=== PATIENT | male | born 1980 | race African-American/Black ===

== ENCOUNTER 2016-04-26 09:14 | Emergency (ER) | payer MEDICARE, OTHER ==
[~2016-04-26] VITALS: Ht 167.6 cm; Wt 68.1 kg
[~2016-04-26 09:14] MED LIST: AMLO-512 PO; CLON.1 PO; LOSA50TA37 PO
[2016-04-26 09:26] VITALS: BP 206/130
[2016-04-26] MEDS ORDERED: HydrALAZINE HCL 25 MG TABLET PO ONE (10:30)
== END 2016-04-26 11:09 | disposition left against medical advice (07) ==
LOC: EMS 09:16
DX: I12.0 Hypertensive chronic kidney disease with stage 5 chronic kidney disease or end stage renal disease (principal); N18.6 End stage renal disease; Z99.2 Dependence on renal dialysis
CPT/HCPCS: 93005; 99283

== ENCOUNTER 2016-04-26 12:01 | Inpatient (IN) | payer MEDICARE, OTHER ==
[~2016-04-26] VITALS: Ht 167.6 cm; Wt 66.7 kg
[2016-04-26 12:21] LABS: BASOPHILS # (AUTO) 0.04 K/uL (0.00-0.20); BASOPHILS % (AUTO) 0.6 % (0.0-2.0); EOSINOPHILS # (AUTO) 0.25 K/uL (0.00-0.70); EOSINOPHILS % (AUTO) 3.93 % (1.0-6.0); HEMATOCRIT 31.3 % (41-53); HEMOGLOBIN 10.4 g/dL (13.5-17.5); LYMPHOCYTES # (AUTO) 0.7 K/uL (1.0-4.8); LYMPHOCYTES % (AUTO) 10.2 % (22.0-44.0); MEAN CORPUSCULAR HEMOGLOBIN 28.2 pg (26.0-34.0); MEAN CORPUSCULAR HGB CONC 33.4 G/dL (31.0-37.0); MEAN CORPUSCULAR VOLUME 84 fL (80-100); MONOCYTES # (AUTO) 0.3 K/uL (0.1-1.0); MONOCYTES % (AUTO) 4.9 % (2.0-9.0); NEUTROPHILS # (AUTO) 5.2 K/uL (1.8-7.7); NEUTROPHILS % (AUTO) 80.4 % (40.0-70.0); PLATELET COUNT (AUTO) 214 K/uL (150-450); RED CELL DISTRIBUTION WIDTH 14.3 % (11.5-14.5); WHITE BLOOD COUNT (AUTO) 6.5 K/uL (4.5-11.0)
[2016-04-26] MEDS ORDERED: CALCIUM GLUCONATE 100 MG/ML 10 ML IVP ONE (12:30)
[2016-04-26] MEDS ORDERED: HydrALAZINE HCL 20 MG/ML VIAL IVP ONE (12:30)
[2016-04-26 12:41] LABS: PROTHROMBIN TIME 10.4 SEC (9.4-11.6)
[2016-04-26] MEDS ORDERED: CLONIDINE HCL TD SCH (14:00)
[2016-04-26 14:10] LABS: ALANINE AMINOTRANSFERASE 28 U/L (12-78); ANION GAP 14 mmol/L (8-16); ASPARTATE AMINOTRANSFERASE 25 U/L (15-37); BILIRUBIN,TOTAL 0.7 mg/dL (0.1-1.0); CALCIUM, TOTAL 8.2 mg/dL (8.8-10.5); CARBON DIOXIDE 27 mmol/L (22-29); CHLORIDE 91 mmol/L (98-107); CREATINE KINASE MB 3.8 ng/mL (0-5); CREATININE 12.43 mg/dL (0.60-1.30); GLOMERULAR FILTR. RATE CALC 6 mL/min (>60); PHOSPHORUS 6.1 mg/dL (2.5-4.9); SODIUM SERUM 132 mmol/L (136-145); TOTAL PROTEIN, SERUM 8.2 g/dL (6.4-8.2); UREA NITROGEN, BLOOD 47 mg/dL (7-18)
[2016-04-26] MEDS: LOSARTAN POTASSIUM 50 MG TABLET PO SCH (14:11)
[2016-04-26] MEDS: AmLODIPine BESYLATE 10 MG TABLET PO SCH ×3 (14:12→14:18)
[2016-04-26 14:13] LABS: CREATINE KINASE, TOTAL 1305 U/L (39-308); POTASSIUM 6.1 mmol/L (3.5-5.1)
[2016-04-26] MEDS ORDERED: BISACODYL 10 MG RECTAL RECTAL SUPPOSITORY PR PRN (14:45)
[2016-04-26] MEDS ORDERED: ACETAMINOPHEN 325 MG TABLET PO PRN (14:45)
[2016-04-26] MEDS ORDERED: OxyCODONE HCL/ACETAMINOPHEN 5-325 MG TABLET PO PRN (14:45)
[2016-04-26] MEDS ORDERED: ALBUTEROL SULFATE 2.5 MG/0.5 ML NEB SOLUTION NEB PRN (14:45)
[2016-04-26] MEDS ORDERED: LORazepam 2 MG/ML VIAL IVP PRN (14:45)
[2016-04-26] MEDS ORDERED: SODIUM POLYSTYRENE SULFONATE 15 GM/60 ML SUSPENSION BOTTLE PR ONE (14:45)
[2016-04-26] MEDS ORDERED: SODIUM POLYSTYRENE SULFONATE 15 GM/60 ML SUSPENSION BOTTLE PO ONE (15:00)
[2016-04-26] MEDS ORDERED: IPRATROPIUM BROMIDE 0.5 MG/2.5 ML NEB SOLUTION NEB ONE (15:45)
[2016-04-26] MEDS ORDERED: ALBUTEROL SULFATE 5 MG/ML 20 ML NEB SOLN [BULK] NEB ONE (15:45)
[2016-04-26] MEDS ORDERED: 0.9% SODIUM CHLORIDE 5 ML NEB SOLUTION NEB ONE (15:53)
[2016-04-26 16:50] LABS: GLUCOSE,POINT OF CARE 112 MG/DL (70-110)
[2016-04-26 17:48] VITALS: BP 163/94
[2016-04-26] MEDS: ALUMINUM HYDROXIDE PO SCH (18:55)
[2016-04-26] MEDS: SEVELAMER CARBONATE 800 MG TABLET PO SCH (18:55)
[2016-04-26 20:39] VITALS: BP 179/94
[2016-04-26] MEDS: HEPARIN SODIUM,PORCINE 5,000 UNITS/ML VIAL SQ SCH (22:01)
[2016-04-26] MEDS: TERAZOSIN HCL 2 MG CAPSULE PO SCH (22:02)
[2016-04-26] MEDS: DOCUSATE SODIUM 100 MG CAPSULE PO SCH (22:02)
[2016-04-27 00:11] VITALS: BP 174/99
[2016-04-27 05:35] VITALS: BP 100/74
[2016-04-27 06:57] LABS: CALCIUM, TOTAL 6.3 mg/dL (8.8-10.5); CREATININE 14.53 mg/dL (0.60-1.30); POTASSIUM 4.6 mmol/L (3.5-5.1)
[2016-04-27 07:35] VITALS: BP 182/118
[2016-04-27] MEDS: ALUMINUM HYDROXIDE PO SCH ×3 (08:00→18:00)
[2016-04-27] MEDS: DOCUSATE SODIUM 100 MG CAPSULE PO SCH ×2 (08:10→20:17)
[2016-04-27] MEDS: SEVELAMER CARBONATE 800 MG TABLET PO SCH ×3 (08:10→18:17)
[2016-04-27] MEDS: PANTOPRAZOLE SODIUM 40 MG DR TABLET PO SCH (08:10)
[2016-04-27] MEDS: VITAMIN B COMP/VIT C/FOLIC ACID CAPSULE PO SCH (08:11)
[2016-04-27] MEDS: HEPARIN SODIUM,PORCINE 5,000 UNITS/ML VIAL SQ SCH (08:14)
[2016-04-27] MEDS ORDERED: VITAMIN B COMP/VIT C/FOLIC ACID CAPSULE PO SCH (09:00)
[2016-04-27 11:25] VITALS: BP 180/108
[2016-04-27] MEDS ORDERED: SODIUM CHLORIDE 0.9% 2,000 ML IV ONE (11:36)
[2016-04-27] MEDS ORDERED: HEPARIN SODIUM,PORCINE 1,000 UNITS/ML VIAL IVP ONE ×3 (12:00→14:45)
[2016-04-27] MEDS: LOSARTAN POTASSIUM 50 MG TABLET PO SCH (13:10)
[2016-04-27] MEDS ORDERED: MANNITOL 25%-12.5 GM/50 ML VIAL IVP PRN (14:45)
[2016-04-27 19:36] VITALS: BP 197/110
[2016-04-27] MEDS: TERAZOSIN HCL 2 MG CAPSULE PO SCH (20:17)
[2016-04-27] MEDS: AmLODIPine BESYLATE 10 MG TABLET PO SCH (20:18)
[2016-04-27 23:43] VITALS: BP 131/75
[2016-04-28] MEDS: CloNIDine HCL 0.2 MG TABLET PO SCH ×2 (00:01→08:18)
[2016-04-28 04:05] VITALS: BP 136/77
[2016-04-28 07:58] VITALS: BP 132/70
[2016-04-28] MEDS: SEVELAMER CARBONATE 800 MG TABLET PO SCH (08:18)
[2016-04-28] MEDS: AmLODIPine BESYLATE 10 MG TABLET PO SCH (08:19)
[2016-04-28] MEDS: PANTOPRAZOLE SODIUM 40 MG DR TABLET PO SCH (08:19)
[2016-04-28] MEDS: DOCUSATE SODIUM 100 MG CAPSULE PO SCH (09:00)
[2016-04-28 09:06] LABS: CALCIUM, TOTAL 7.7 mg/dL (8.8-10.5); CREATININE 10.32 mg/dL (0.60-1.30); POTASSIUM 5.5 mmol/L (3.5-5.1)
[2016-04-28 09:10] LABS: PHOSPHORUS 6.1 mg/dL (2.5-4.9)
[2016-04-28] MEDS: VITAMIN B COMP/VIT C/FOLIC ACID CAPSULE PO SCH (09:16)
[2016-04-28 11:25] VITALS: BP 131/77
[2016-04-28] MEDS ORDERED: SEVE2.4P PO ×3 (13:18→13:20)
[2016-04-28] MEDS ORDERED: SEVEC800 PO (13:24)
[2016-05-03] MEDS ORDERED: CLONIDINE HCL TD SCH (14:00)
== END 2016-04-28 14:10 | disposition home or self-care (01) | DRG 682 ==
LOC: EMS 12:03 → AHU 15:54 → 5S 19:27
PROVIDERS: ADMIT Internal Medicine; ATTEND Internal Medicine
PROC: 5A1D00Z (ICD-10-PCS; principal; 2016-04-27)
DX: I12.0 Hypertensive chronic kidney disease with stage 5 chronic kidney disease or end stage renal disease (principal); N18.6 End stage renal disease; E87.5 Hyperkalemia; D63.1 Anemia in chronic kidney disease; E83.39 Other disorders of phosphorus metabolism; E83.51 Hypocalcemia; J45.909 Unspecified asthma, uncomplicated; R56.9 Unspecified convulsions; Z86.14 Personal history of Methicillin resistant Staphylococcus aureus infection; Z87.891 Personal history of nicotine dependence; Z91.14 Patient's other noncompliance with medication regimen; Z91.19 Patient's noncompliance with other medical treatment and regimen; Z99.2 Dependence on renal dialysis; Z79.899 Other long term (current) drug therapy
CPT/HCPCS: 70450; 70486; 72125; 82962; 83970; 84100; 87040; 87081; 90935; 93005; 94644; 95816; 96374; 96375; 99285; J0360; J0610; J1644; J7030

== ENCOUNTER 2016-08-28 20:57 | Inpatient (IN) | payer MEDICARE, OTHER ==
[~2016-08-28] VITALS: Ht 170.2 cm; Wt 62.4 kg
[~2016-08-28 20:57] MED LIST changes: +SEVEC800 PO
[2016-08-28] MEDS ORDERED: ACETAMINOPHEN 500 MG TABLET ONE (21:13)
[2016-08-28] MEDS ORDERED: TERA5 PO (21:14)
[2016-08-28] MEDS ORDERED: SPIR25 PO (21:14)
[2016-08-28] MEDS ORDERED: CALC-879 PO (21:14)
[2016-08-28] MEDS ORDERED: ACETAMINOPHEN 500 MG TABLET PO ONE (21:15)
[2016-08-28] MEDS ORDERED: SODIUM CHLORIDE 0.9% 500 ML IV ONE ×2 (21:30→22:30)
[2016-08-28] MEDS ORDERED: ONDANSETRON HCL 4 MG/2 ML VIAL IVP ONE (21:30)
[2016-08-28 22:11] LABS: EOSINOPHILS % (AUTO) 2.3 % (1.0-6.0); HEMATOCRIT 22.7 % (41-53); HEMOGLOBIN 7.4 g/dL (13.5-17.5); LYMPHOCYTES # (AUTO) 0.1 K/uL (1.0-4.8); LYMPHOCYTES % (AUTO) 1.1 % (22.0-44.0); MEAN CORPUSCULAR HEMOGLOBIN 28.7 pg (26.0-34.0); MEAN CORPUSCULAR HGB CONC 32.7 G/dL (31.0-37.0); MEAN CORPUSCULAR VOLUME 88 fL (80-100); MONOCYTES # (AUTO) 0.6 K/uL (0.1-1.0); MONOCYTES % (AUTO) 6.9 % (2.0-9.0); NEUTROPHILS # (AUTO) 8.2 K/uL (1.8-7.7); RED BLOOD CELL COUNT(AUTO) 2.59 MIL/uL (4.50-5.90); RED CELL DISTRIBUTION WIDTH 18.2 % (11.5-14.5); WHITE BLOOD COUNT (AUTO) 9.1 K/uL (4.5-11.0)
[2016-08-28 22:17] LABS: NEUTROPHILS % (AUTO) 89.7 % (40.0-70.0)
[2016-08-28 22:23] LABS: ALBUMIN 3.7 g/dL (3.4-5.0); BILIRUBIN,TOTAL 1.1 mg/dL (0.1-1.0); CALCIUM, TOTAL 8.9 mg/dL (8.8-10.5); CREATININE 14.17 mg/dL (0.60-1.30); TOTAL PROTEIN, SERUM 6.9 g/dL (6.4-8.2)
[2016-08-28 22:25] LABS: LACTIC ACID 1.3 mmol/L (0.4-2.0)
[2016-08-28 22:26] LABS: POTASSIUM 6.6 mmol/L (3.5-5.1)
[2016-08-28] MEDS ORDERED: CALCIUM GLUCONATE 100 MG/ML 10 ML IVP ONE (22:30)
[2016-08-28] MEDS ORDERED: DEXTROSE 50%-WATER 25 GM/50 ML SYRINGE IVP ONE (22:30)
[2016-08-28] MEDS ORDERED: INSULIN REGULAR, HUMAN 100 UNITS/ML IVP ONE (22:30)
[2016-08-28] MEDS ORDERED: SODIUM POLYSTYRENE SULFONATE 15 GM/60 ML SUSPENSION BOTTLE PO ONE (22:30)
[2016-08-28] MEDS ORDERED: FUROSEMIDE 40 MG/4 ML VIAL IVP ONE (22:30)
[2016-08-28] MEDS ORDERED: ALBUTEROL SULFATE 2.5 MG/0.5 ML NEB SOLUTION NEB ONE (22:30)
[2016-08-28] MEDS ORDERED: SODIUM BICARBONATE [ADULT] 8.4% 50 MEQ/50 ML SYRINGE IVP ONE (22:30)
[2016-08-28 22:32] LABS: PLATELET COUNT (AUTO) 78 K/uL (150-450); RBC MORPHOLOGY COMMENT ABNORMAL RBC MORPH
[2016-08-28 22:52] LABS: GLUCOSE,POINT OF CARE 93 MG/DL (70-110)
[2016-08-28] MEDS ORDERED: HYDROCODONE/ACETAMINOPHEN 5-325 MG TABLET PO PRN (23:15)
[2016-08-28] MEDS ORDERED: MAGNESIUM HYDROXIDE SUSPENSION 30 ML UDCUP PO PRN (23:15)
[2016-08-28] MEDS ORDERED: ONDANSETRON HCL 4 MG/2 ML VIAL IVP PRN (23:15)
[2016-08-28] MEDS ORDERED: MORPHINE SULFATE 2 MG/ML SYRINGE IVP PRN (23:15)
[2016-08-28] MEDS ORDERED: ALBUTEROL SULFATE 2.5 MG/0.5 ML NEB SOLUTION NEB PRN (23:15)
[2016-08-28] MEDS ORDERED: ZOLPIDEM TARTRATE 5 MG TABLET PO PRN (23:15)
[2016-08-28] MEDS ORDERED: VANCOMYCIN HCL 500 MG in DEXTROSE 5%-WATER 100 ML IV ONE (23:15)
[2016-08-28] MEDS ORDERED: IPRATROPIUM BROMIDE 0.5 MG/2.5 ML NEB SOLUTION NEB PRN (23:15)
[2016-08-28] MEDS ORDERED: BISACODYL 10 MG RECTAL RECTAL SUPPOSITORY PR PRN (23:15)
[2016-08-28] MEDS ORDERED: 0.9% SODIUM CHLORIDE 5 ML NEB SOLUTION NEB ONE (23:42)
[2016-08-29] VITALS (8 sets, daily range): BP systolic 131–169; BP diastolic 72–89
[2016-08-29] MEDS ORDERED: HydrALAZINE HCL 20 MG/ML VIAL IVP PRN ×2 (00:15→01:45)
[2016-08-29] MEDS ORDERED: HydrALAZINE HCL 20 MG/ML VIAL IVP ONE (01:45)
[2016-08-29] MEDS ORDERED: NIFEdipine 60 MG ER TABLET PO ONE (01:45)
[2016-08-29] MEDS ORDERED: HEPARIN SODIUM,PORCINE 1,000 UNITS/ML VIAL IVP ONE ×3 (02:00→12:00)
[2016-08-29] MEDS: HEPARIN SODIUM,PORCINE 5,000 UNITS/ML VIAL SQ SCH ×4 (02:02→22:55)
[2016-08-29] MEDS: ACETAMINOPHEN 325 MG TABLET PO PRN ×3 (02:08→11:21)
[2016-08-29] MEDS ORDERED: SODIUM CHLORIDE 0.9% 250 ML IV ONE (02:18)
[2016-08-29 06:39] LABS: EOSINOPHILS # (AUTO) 0.11 K/uL (0.00-0.70); EOSINOPHILS % (AUTO) 1.28 % (1.0-6.0); HEMOGLOBIN 7.4 g/dL (13.5-17.5); LYMPHOCYTES # (AUTO) 0.1 K/uL (1.0-4.8); LYMPHOCYTES % (AUTO) 0.8 % (22.0-44.0); MEAN CORPUSCULAR HEMOGLOBIN 29.2 pg (26.0-34.0); MEAN CORPUSCULAR HGB CONC 33.6 G/dL (31.0-37.0); MEAN CORPUSCULAR VOLUME 87 fL (80-100); MONOCYTES # (AUTO) 0.4 K/uL (0.1-1.0); MONOCYTES % (AUTO) 4.9 % (2.0-9.0); NEUTROPHILS # (AUTO) 7.9 K/uL (1.8-7.7); PLATELET COUNT (AUTO) 74 K/uL (150-450); RED BLOOD CELL COUNT(AUTO) 2.54 MIL/uL (4.50-5.90); RED CELL DISTRIBUTION WIDTH 18.2 % (11.5-14.5); WHITE BLOOD COUNT (AUTO) 8.5 K/uL (4.5-11.0)
[2016-08-29 07:12] LABS: ALBUMIN 3.3 g/dL (3.4-5.0); BILIRUBIN,TOTAL 1.5 mg/dL (0.1-1.0); CALCIUM, TOTAL 9.1 mg/dL (8.8-10.5); CREATININE 8.86 mg/dL (0.60-1.30); POTASSIUM 4.7 mmol/L (3.5-5.1); TOTAL PROTEIN, SERUM 6.4 g/dL (6.4-8.2)
[2016-08-29] MEDS: PANTOPRAZOLE SODIUM 40 MG/VIAL IVP SCH (08:35)
[2016-08-29] MEDS: DOCUSATE SODIUM 100 MG CAPSULE PO SCH ×2 (08:35→20:58)
[2016-08-29] MEDS ORDERED: VANCOMYCIN HCL 1 GM/D5% WATER 200 ML IV PRN (08:45)
[2016-08-29] MEDS ORDERED: AmLODIPine BESYLATE 10 MG TABLET PO SCH (09:00)
[2016-08-29] MEDS ORDERED: NIFEdipine 60 MG ER TABLET PO SCH (09:00)
[2016-08-29] MEDS ORDERED: LOSARTAN POTASSIUM 50 MG TABLET PO SCH (09:30)
[2016-08-29] MEDS: PIPERACILLIN SODIUM/TAZOBACTAM 2.25 GM in DEXTROSE 5%-WATER 50 ML IV SCH ×2 (11:00→18:08)
[2016-08-29] MEDS: METOPROLOL TARTRATE 50 MG TABLET PO SCH ×2 (11:01→20:58)
[2016-08-29] MEDS: SEVELAMER CARBONATE 800 MG TABLET PO SCH ×2 (11:45→18:06)
[2016-08-29] MEDS ORDERED: CloNIDine HCL 0.1 MG TABLET PO PRN (12:45)
[2016-08-29] MEDS: AmLODIPine BESYLATE 10 MG TABLET PO SCH (14:10)
[2016-08-29] MEDS ORDERED: TERAZOSIN HCL 2 MG CAPSULE PO SCH (21:00)
[2016-08-30] VITALS (11 sets, daily range): BP systolic 147–189; BP diastolic 80–121
[2016-08-30] MEDS: DOCUSATE SODIUM 100 MG CAPSULE PO SCH (08:11)
[2016-08-30] MEDS: PANTOPRAZOLE SODIUM 40 MG/VIAL IVP SCH (08:27)
[2016-08-30] MEDS: SEVELAMER CARBONATE 800 MG TABLET PO SCH ×2 (08:28→12:00)
[2016-08-30] MEDS: HEPARIN SODIUM,PORCINE 5,000 UNITS/ML VIAL SQ SCH ×2 (08:28→16:00)
[2016-08-30] MEDS ORDERED: EPOETIN ALFA 10,000 UNITS/ML VIAL SQ SCH (09:00)
[2016-08-30] MEDS ORDERED: VANCOMYCIN HCL 500 MG in DEXTROSE 5%-WATER 100 ML IV PRN (10:00)
[2016-08-30] MEDS ORDERED: [UNRECOGNIZED DRUG - REMARK] MISC SCH (10:21)
[2016-08-30 10:25] LABS: HEMATOCRIT 21.7 % (41-53); HEMOGLOBIN 7.2 g/dL (13.5-17.5); MEAN CORPUSCULAR HGB CONC 33.2 G/dL (31.0-37.0); MEAN CORPUSCULAR VOLUME 87 fL (80-100); PLATELET COUNT (AUTO) 76 K/uL (150-450); RED BLOOD CELL COUNT(AUTO) 2.49 MIL/uL (4.50-5.90); RED CELL DISTRIBUTION WIDTH 18.2 % (11.5-14.5); WHITE BLOOD COUNT (AUTO) 10.7 K/uL (4.5-11.0)
[2016-08-30 10:41] LABS: ALBUMIN 3.4 g/dL (3.4-5.0); BILIRUBIN,TOTAL 0.8 mg/dL (0.1-1.0); CALCIUM, TOTAL 8.9 mg/dL (8.8-10.5); CREATININE 11.96 mg/dL (0.60-1.30); PHOSPHORUS 3.5 mg/dL (2.5-4.9); POTASSIUM 5.8 mmol/L (3.5-5.1); TOTAL PROTEIN, SERUM 6.9 g/dL (6.4-8.2)
[2016-08-30 10:50] LABS: BAND NEUTROPHILS % (MANUAL) 15 % (1-5); EOSINOPHILS % (MANUAL) 8 % (1-6); LYMPHOCYTES % (MANUAL) 9 % (22-44); RBC MORPHOLOGY COMMENT ABNORMAL RBC MORPH; TOTAL CELLS COUNTED 100
[2016-08-30] MEDS ORDERED: SODIUM CHLORIDE 0.9% 2,000 ML IV ONE (13:12)
[2016-08-30] MEDS ORDERED: SODIUM CHLORIDE 0.9% 250 ML IV ONE ×2 (13:20→13:30)
[2016-08-30] MEDS ORDERED: MANNITOL 25%-12.5 GM/50 ML VIAL IVP PRN (15:45)
[2016-08-30] MEDS ORDERED: HEPARIN SODIUM,PORCINE 1,000 UNITS/ML VIAL IVP ONE ×3 (15:45→17:04)
[2016-08-30] MEDS: AmLODIPine BESYLATE 10 MG TABLET PO SCH (16:21)
[2016-08-30] MEDS: METOPROLOL TARTRATE 50 MG TABLET PO SCH (16:21)
== END 2016-08-30 17:05 | disposition left against medical advice (07) | DRG 314 ==
LOC: EMS 21:05 → 5S 23:06
PROVIDERS: ADMIT Hospitalist; ATTEND Hospitalist
PROC: 5A1D00Z (ICD-10-PCS; principal; 2016-08-29)
PROC: 30233N1 Transfusion of Nonautologous Red Blood Cells into Peripheral Vein, Percutaneous Approach (ICD-10-PCS; 2016-08-30)
DX: T82.7XXA Infection and inflammatory reaction due to other cardiac and vascular devices, implants and grafts, initial encounter (principal); A41.9 Sepsis, unspecified organism; N18.6 End stage renal disease; I12.0 Hypertensive chronic kidney disease with stage 5 chronic kidney disease or end stage renal disease; E87.1 Hypo-osmolality and hyponatremia; N25.81 Secondary hyperparathyroidism of renal origin; E87.5 Hyperkalemia; D63.1 Anemia in chronic kidney disease; Z99.2 Dependence on renal dialysis; B95.8 Unspecified staphylococcus as the cause of diseases classified elsewhere; E83.39 Other disorders of phosphorus metabolism; E83.51 Hypocalcemia; J45.909 Unspecified asthma, uncomplicated; Z82.49 Family history of ischemic heart disease and other diseases of the circulatory system; Z86.14 Personal history of Methicillin resistant Staphylococcus aureus infection; Z91.14 Patient's other noncompliance with medication regimen; Z91.19 Patient's noncompliance with other medical treatment and regimen; D63.8 Anemia in other chronic diseases classified elsewhere; Y83.8 Other surgical procedures as the cause of abnormal reaction of the patient, or of later complication, without mention of misadventure at the time of the procedure; Z53.21 Procedure and treatment not carried out due to patient leaving prior to being seen by health care provider
CPT/HCPCS: 82962; 83605; 84100; 86850; 86900; 86901; 86920; 87040; 87081; 87340; 90935; 93005; 94640; 96361; 96374; 96375; 99285; C9113; J0360; J0610; J0885; J1644; J1815; J1940; J2405; J2543; J3370; J3490; J7030; J7040; J7050; J7060; P9016

== ENCOUNTER 2017-09-08 08:25 | Emergency (ER) | payer MEDICARE, OTHER ==
[~2017-09-08] VITALS: Ht 170.2 cm; Wt 69.5 kg
[~2017-09-08 08:25] MED LIST changes: +CALC-1085 PO; -CLON.1 PO; -LOSA50TA37 PO; -SEVEC800 PO; +SPIR25 PO; +TERA5 PO
[2017-09-08 08:31] VITALS: BP 164/96
== END 2017-09-08 09:20 | disposition left against medical advice (07) ==
LOC: EMS 08:27
DX: I12.9 Hypertensive chronic kidney disease with stage 1 through stage 4 chronic kidney disease, or unspecified chronic kidney disease (principal); N18.9 Chronic kidney disease, unspecified; J45.909 Unspecified asthma, uncomplicated; Z99.2 Dependence on renal dialysis
CPT/HCPCS: 93005; 99284

== ENCOUNTER 2017-11-20 11:57 | Emergency (ER) | payer MEDICARE, OTHER ==
[~2017-11-20] VITALS: Ht 170.2 cm; Wt 70.9 kg
[~2017-11-20 11:57] MED LIST changes: -TERA5 PO; +TERA5CAP12 PO
[2017-11-20 12:43] VITALS: BP 167/99
== END 2017-11-20 13:39 | disposition home or self-care (01) ==
LOC: EMS 11:59
DX: T82.838A Hemorrhage due to vascular prosthetic devices, implants and grafts, initial encounter (principal); I12.0 Hypertensive chronic kidney disease with stage 5 chronic kidney disease or end stage renal disease; N18.6 End stage renal disease; J45.909 Unspecified asthma, uncomplicated; Z99.2 Dependence on renal dialysis
CPT/HCPCS: 99281

== ENCOUNTER 2021-12-30 11:02 | Emergency (ER) | payer MEDICARE, OTHER ==
[~2021-12-30] VITALS: Ht 170.2 cm; Wt 70.9 kg
[~2021-12-30 11:02] MED LIST changes: +AMLO-258 PO; -AMLO-512 PO; +SPIR-37 PO; -SPIR25 PO; -TERA5CAP12 PO; +TERA5CAP77 PO
[2021-12-30 11:21] VITALS: BP 203/111
== END 2021-12-30 12:04 | disposition left against medical advice (07) ==
LOC: EMS 11:02
DX: Z53.21 Procedure and treatment not carried out due to patient leaving prior to being seen by health care provider (principal)

== ENCOUNTER 2022-10-20 10:42 | Emergency (ER) | payer MEDICARE, OTHER ==
[~2022-10-20] VITALS: Ht 170.2 cm; Wt 66.8 kg
[2022-10-20 11:04] VITALS: BP 141/80; PULSE 99; RESP 16; TEMP 98.3
[2022-10-20] MEDS ORDERED: blood pressure PO (11:04)
== END 2022-10-20 11:25 | disposition left against medical advice (07) ==
LOC: EMS 10:42
DX: R22.0 Localized swelling, mass and lump, head (principal); Z53.21 Procedure and treatment not carried out due to patient leaving prior to being seen by health care provider
CPT/HCPCS: 99281; Z7502

== ENCOUNTER 2023-01-22 10:17 | Emergency (ER) | payer MEDICARE, OTHER ==
[~2023-01-22] VITALS: Ht 167.6 cm; Wt 61.4 kg
[~2023-01-22 10:17] MED LIST changes: -AMLO-258 PO; -CALC-1085 PO; -SPIR-37 PO; -TERA5CAP77 PO; +blood pressure PO
[2023-01-22 10:35] VITALS: BP 159/98; TEMP 98.3
[2023-01-22 11:09] VITALS: PULSE 98; RESP 24; O2SAT 94
[2023-01-22] MEDS ORDERED: ALBUTEROL SULFATE 2.5 MG/0.5 ML NEB SOLUTION NEB ONE (11:15)
[2023-01-22] MEDS ORDERED: PredniSONE 20 MG TABLET PO ONE (11:15)
[2023-01-22] MEDS ORDERED: IPRATROPIUM BROMIDE 0.5 MG/2.5 ML NEB SOLUTION NEB ONE (11:15)
[2023-01-22 11:24] VITALS: PULSE 90; RESP 22; O2SAT 98
[2023-01-22 11:28] LABS: BASOPHILS % (AUTO) 1.3 % (0.0-2.0); EOSINOPHILS % (AUTO) 8.4 % (1.0-6.0); HEMOGLOBIN 11.5 g/dL (13.5-17.5); LYMPHOCYTES # (AUTO) 0.2 K/uL (1.0-4.8); LYMPHOCYTES % (AUTO) 6.9 % (22.0-44.0); MEAN CORPUSCULAR HEMOGLOBIN 28.8 pg (26.0-34.0); MEAN CORPUSCULAR HGB CONC 33.8 G/dL (31.0-37.0); MEAN CORPUSCULAR VOLUME 85 fL (80-100); MONOCYTES # (AUTO) 0.3 K/uL (0.1-1.0); MONOCYTES % (AUTO) 11.1 % (2.0-9.0); NEUTROPHILS # (AUTO) 2.1 K/uL (1.8-7.7); NEUTROPHILS % (AUTO) 72.3 % (40.0-70.0); PLATELET COUNT (AUTO) 98 K/uL (150-450); RED BLOOD CELL COUNT(AUTO) 3.99 MIL/uL (4.50-5.90); WHITE BLOOD COUNT (AUTO) 2.9 K/uL (4.5-11.0)
[2023-01-22 11:31] LABS: RBC MORPHOLOGY COMMENT NORMAL RBC MORPH
[2023-01-22 11:38] LABS: CALCIUM, TOTAL 9.3 mg/dL (8.8-10.5); CREATININE 5.91 mg/dL (0.60-1.30)
[2023-01-22] MEDS ORDERED: PRED-554 PO (12:14)
== END 2023-01-22 12:15 | disposition home or self-care (01) ==
LOC: EMS 10:17
DX: J45.909 Unspecified asthma, uncomplicated (principal); I10 Essential (primary) hypertension; D69.6 Thrombocytopenia, unspecified; N18.6 End stage renal disease; Z99.2 Dependence on renal dialysis
CPT/HCPCS: 99284; 71045; 80048; 85025; 36415; 94640; J7512; J7613

== ENCOUNTER 2023-03-10 11:05 | Emergency (ER) | payer MEDICARE, OTHER ==
[~2023-03-10] VITALS: Ht 170.2 cm; Wt 67.3 kg
[~2023-03-10 11:05] MED LIST changes: +ALBU18HF7 IH; +DOXY-354 PO; +MINO10 PO; -blood pressure PO
[2023-03-10 11:10] VITALS: BP 136/81; PULSE 100; RESP 16; TEMP 98.4
[2023-03-10 11:18] LABS: COVID AG,FIA SOURCE NASAL SWAB
[2023-03-10 11:52] LABS: SARS-COV2 (COVID) ANTIGEN,FIA Negative (Negative)
[2023-03-10 11:53] LABS: INFLUENZA TYPE A NEGATIVE FOR TYPE A (NEGATIVE); INFLUENZA TYPE B NEGATIVE FOR TYPE B (NEGATIVE)
== END 2023-03-10 14:33 | disposition left against medical advice (07) ==
LOC: EMS 11:05
DX: J06.9 Acute upper respiratory infection, unspecified (principal); J45.909 Unspecified asthma, uncomplicated; I10 Essential (primary) hypertension; Z98.890 Other specified postprocedural states; Z91.011 Allergy to milk products; Z20.822 Contact with and (suspected) exposure to COVID-19
CPT/HCPCS: 99283; 87426; 87804; C9803

== ENCOUNTER 2023-11-29 01:21 | Emergency (ER) | payer MEDICARE, OTHER ==
[~2023-11-29] VITALS: Ht 170.2 cm; Wt 72.7 kg
[2023-11-29 01:26] VITALS: BP 177/92; TEMP 99.1
[2023-11-29] MEDS ORDERED: PrednisoLONE SOD PHOSPHATE 15 MG/5 ML SOLUTION UDCUP PO ONE (02:00)
[2023-11-29 02:04] LABS: BASOPHILS % (AUTO) 2.1 % (0.0-2.0); EOSINOPHILS % (AUTO) 12.6 % (1.0-6.0); HEMATOCRIT 32.8 % (41-53); HEMOGLOBIN 10.9 g/dL (13.5-17.5); LYMPHOCYTES # (AUTO) 0.6 K/uL (1.0-4.8); LYMPHOCYTES % (AUTO) 11.6 % (22.0-44.0); MEAN CORPUSCULAR HEMOGLOBIN 28.3 pg (26.0-34.0); MEAN CORPUSCULAR HGB CONC 33.1 G/dL (31.0-37.0); MEAN CORPUSCULAR VOLUME 86 fL (80-100); MONOCYTES # (AUTO) 0.7 K/uL (0.1-1.0); MONOCYTES % (AUTO) 14.2 % (2.0-9.0); NEUTROPHILS % (AUTO) 59.5 % (40.0-70.0); PLATELET COUNT (AUTO) 173 K/uL (150-450); RED BLOOD CELL COUNT(AUTO) 3.83 MIL/uL (4.50-5.90); RED CELL DISTRIBUTION WIDTH 14.2 % (11.5-14.5); WHITE BLOOD COUNT (AUTO) 5.1 K/uL (4.5-11.0)
[2023-11-29] MEDS: IPRATROPIUM BROMIDE 0.5 MG/2.5 ML NEB SOLUTION NEB ONE ×2 (02:11→04:04)
[2023-11-29] MEDS: ALBUTEROL SULFATE 2.5 MG/0.5 ML NEB SOLUTION NEB ONE ×2 (02:11→04:05)
[2023-11-29] MEDS: PredniSONE 20 MG TABLET PO ONE (02:15)
[2023-11-29 02:24] VITALS: PULSE 101; RESP 22; O2SAT 95
[2023-11-29 02:27] VITALS: PULSE 101; RESP 22; O2SAT 95
[2023-11-29 02:31] LABS: CALCIUM, TOTAL 9.7 mg/dL (8.8-10.5); CREATININE 8.11 mg/dL (0.60-1.30)
[2023-11-29 02:49] LABS: INFLUENZA A-RTPCR,COMBO NEGATIVE (NEGATIVE); INFLUENZA B-RTPCR,COMBO NEGATIVE (NEGATIVE); RESPIRATORY SYNCYTIAL VRS-PCR NEGATIVE (NEGATIVE); SARS COVID19 RTPCR, COMBO NEGATIVE (NEGATIVE)
[2023-11-29] MEDS: BENZONATATE 100 MG CAPSULE PO ONE (04:01)
[2023-11-29] MEDS ORDERED: PRED-554 PO (04:01)
[2023-11-29] MEDS ORDERED: ALBU2.5V39 NEB (04:04)
== END 2023-11-29 06:14 | disposition home or self-care (01) ==
LOC: EMS 01:21
DX: J45.901 Unspecified asthma with (acute) exacerbation (principal); I10 Essential (primary) hypertension; Z98.890 Other specified postprocedural states; Z91.011 Allergy to milk products; Z20.822 Contact with and (suspected) exposure to COVID-19
CPT/HCPCS: 99285; 0241U; 71045; 80048; 83880; 85025; 36415; 94640; 93005; J7512; J7613

== ENCOUNTER 2023-12-01 05:15 | Emergency (ER) | payer MEDICARE, OTHER ==
[~2023-12-01] VITALS: Ht 170.2 cm; Wt 70.5 kg
[~2023-12-01 05:15] MED LIST changes: +ALBU2.5V39 NEB; +PRED-554 PO
[2023-12-01 05:22] VITALS: TEMP 99.5
[2023-12-01 05:32] VITALS: BP 170/96; PULSE 94; RESP 18; O2SAT 99
[2023-12-01] MEDS ORDERED: BENZ-227 PO (05:36)
== END 2023-12-01 05:53 | disposition home or self-care (01) ==
LOC: EMS 05:21
DX: R05.9 Cough, unspecified (principal); J45.909 Unspecified asthma, uncomplicated; I10 Essential (primary) hypertension; Z98.890 Other specified postprocedural states; Z91.011 Allergy to milk products
CPT/HCPCS: 99283; Z7502